=== PATIENT | female | born 1935 | race Caucasian/White ===

== ENCOUNTER 2022-10-25 15:57 | Inpatient (IN) | payer MEDICARE, OTHER ==
[~2022-10-25] VITALS: Ht 162.6 cm; Wt 106.6 kg
[2022-10-25] MEDS ORDERED: BUSPIRONE (16:15)
[2022-10-25] MEDS ORDERED: ESCITALOPRAM (16:15)
[2022-10-25] MEDS ORDERED: TRAZODONE (16:15)
[2022-10-25] MEDS ORDERED: AZIT250T PO (16:15)
[2022-10-25] MEDS ORDERED: SYNTHROID (16:15)
[2022-10-25] MEDS ORDERED: COZAAR (16:15)
[2022-10-25] MEDS ORDERED: ARICEPT (16:15)
[2022-10-25] MEDS ORDERED: PREDNISONE (16:15)
[2022-10-25] MEDS ORDERED: ASPI81TA31 PO (16:15)
--- NOTE | 2022-10-25 16:44 | NUR ---
PT IS IN ROOM #4A. DR DA SILVA EVALUATED THE PT.
[2022-10-25 16:50] LABS: HEMATOCRIT 39.8 % (31.2-41.9); MEAN CORPUSCULAR HEMOGLOBIN 30.5 uug (24.7-32.8); MEAN CORPUSCULAR VOLUME 94.1 fL (75.5-95.3); PLATELET COUNT (AUTO) 317 K/uL (179-408)
[2022-10-25 17:07] LABS: CARBON DIOXIDE 30 mmol/L (21-32); CHLORIDE 105 mmol/L (98-107); CREATININE 1.3 mg/dL (0.6-1.3); GLUCOSE 145 mg/dL (74-106); POTASSIUM 4.3 mmol/L (3.5-5.1); UREA NITROGEN, BLOOD 23 mg/dL (7-18)
[2022-10-25] MEDS ORDERED: ALBUTEROL SULFATE 2.5 MG/3 ML NEBU ONE ×2 (17:24→18:10)
[2022-10-25] MEDS ORDERED: IPRATROPIUM BROMIDE 0.5 MG/2.5 ML NEBU ONE ×2 (17:25→18:10)
[2022-10-25 17:30] LABS: ALANINE AMINOTRANSFERASE 15 U/L (14-59); ALKALINE PHOSPHATASE 101 U/L (50-136); ASPARTATE AMINOTRANSFERASE 13 U/L (15-37); BILIRUBIN,DIRECT 0.1 mg/dL (0.0-0.2); BILIRUBIN,TOTAL 0.2 mg/dL (0.2-1.0)
[2022-10-25] MEDS ORDERED: IPRATROPIUM BROMIDE 0.5 MG/2.5 ML NEBU NEB ONE ×2 (17:30→18:15)
[2022-10-25] MEDS ORDERED: ALBUTEROL SULFATE 2.5 MG/3 ML NEBU NEB ONE ×2 (17:30→18:15)
[2022-10-25] MEDS ORDERED: methylPREDNISolone SOD SUCC 40 MG/ML VIAL IV ONE (18:15)
--- NOTE | 2022-10-25 19:31 | NUR ---
Called [facility] for panel call. Dr. Jorge Mayo transition mgr.
[2022-10-25] MEDS ORDERED: methylPREDNISolone SOD SUCC 40 MG/ML VIAL ONE (19:39)
[2022-10-25 20:00] VITALS: BP 134/76
--- NOTE | 2022-10-25 20:00 | NUR ---
Called thrid floor and recieved room #[id number] from Edgar GARAY.
--- NOTE | 2022-10-25 21:28 | NUR ---
Called third floor and gave report ot Eddie GARAY.
[2022-10-25] MEDS ORDERED: TRAZODONE 50 MG TABLET PO PRN (21:30)
[2022-10-25] MEDS ORDERED: IV LACTATED RINGERS SOLUTION 1,000 ML IV PRN (21:45)
[2022-10-25] MEDS: ALBUTEROL SULFATE 1.25 MG/3 ML NEBU NEB SCH (21:45)
[2022-10-25] MEDS ORDERED: REMEDY ESSENTIAL ZINC PASTE 113 GM TP PRN (21:45)
[2022-10-25] MEDS: IPRATROPIUM BROMIDE 0.5 MG/2.5 ML NEBU NEB SCH (21:45)
[2022-10-25] MEDS ORDERED: MAGNESIUM HYDROXIDE 30 ML LIQUID UDC PO PRN (21:45)
[2022-10-25] MEDS ORDERED: CEFTRIAXONE 1 G in IV DEXTROSE 5% 50 ML IV SCH (21:45)
[2022-10-25] MEDS ORDERED: ONDANSETRON 4 MG/2 ML VIAL IV PRN (21:45)
[2022-10-25] MEDS ORDERED: DEXTROSE 50% 50 ML DISP.SYRIN IV PRN (21:45)
[2022-10-25] MEDS ORDERED: ACETAMINOPHEN 325 MG TABLET PO PRN (21:45)
--- NOTE | 2022-10-25 21:48 | NUR ---
Patient was transferred up to 3rd floor via gurney. TANISHA Morgan made aware of patient's arrival.
[2022-10-25] MEDS ORDERED: DEXAMETHASONE SOD PHOSPHATE 4 MG INJ IV ONE (22:15)
[2022-10-25] MEDS: ENOXAPARIN SODIUM 30 MG/0.3 ML DISP.SYRIN SUBCUT SCH (22:55)
[2022-10-26 04:00] VITALS: BP 126/50
[2022-10-26] MEDS ORDERED: CEFTRIAXONE 1 G VIAL ONE (05:19)
[2022-10-26] MEDS: BLOOD SUGAR DIAGNOSTIC 1 EACH STRIP VI SCH ×4 (05:52→20:31)
[2022-10-26] MEDS ORDERED: DEXAMETHASONE SOD PHOSPHATE 4 MG INJ IV ONE (06:15)
[2022-10-26] MEDS ORDERED: LEVOTHYROXINE SODIUM 25 MCG TABLET PO SCH (07:00)
[2022-10-26] MEDS ORDERED: LEVOTHYROXINE SODIUM 50 MCG TABLET PO SCH ×2 (07:00)
[2022-10-26] MEDS: ALBUTEROL SULFATE 1.25 MG/3 ML NEBU NEB SCH ×4 (07:17→19:26)
[2022-10-26] MEDS: IPRATROPIUM BROMIDE 0.5 MG/2.5 ML NEBU NEB SCH ×4 (07:17→19:26)
[2022-10-26 07:23] LABS: HEMATOCRIT 37.7 % (31.2-41.9); MEAN CORPUSCULAR HEMOGLOBIN 30.7 uug (24.7-32.8); MEAN CORPUSCULAR VOLUME 93.7 fL (75.5-95.3); PLATELET COUNT (AUTO) 283 K/uL (179-408)
[2022-10-26 07:39] LABS: BILIRUBIN,TOTAL 0.1 mg/dL (0.2-1.0); CREATININE 1.3 mg/dL (0.6-1.3); MAGNESIUM 1.9 mg/dL (1.8-2.4); PHOSPHOROUS 3.3 mg/dL (2.5-4.9); POTASSIUM 5.3 mmol/L (3.5-5.1); TOTAL PROTEIN, SERUM 6.6 g/dL (6.4-8.2)
[2022-10-26 08:00] VITALS: BP 118/47
--- NOTE | 2022-10-26 08:06 | NUR ---
Received pt. Camille from [facility] ([facility]) at about 21:45 PM. Per report and pt assessment, pt is being admitted after c/o S.O.B and Bronchitis. Pt is oriented to unit and is not c/o of pain. Pt. states that she is sleepy and was not able to complete assessment at the time. Skin is intact. Pt is AOX3. Endorsed care to AM nurse Max at 7:30 AM
[2022-10-26] MEDS: LOSARTAN POTASSIUM 50 MG TABLET PO SCH (08:18)
[2022-10-26] MEDS: INSULIN REGULAR, HUMAN 300 UNIT/3 ML VIAL SQ PRN ×4 (08:20→20:37)
[2022-10-26] MEDS: DOXYCYCLINE HYCLATE IV 100 MG in IV DEXTROSE 5% 100 ML IV SCH ×2 (08:22→20:24)
[2022-10-26] MEDS ORDERED: DONEPEZIL 10 MG TABLET PO SCH ×2 (09:00→17:00)
[2022-10-26] MEDS ORDERED: ASPIRIN 81 MG TAB.CHEW PO SCH (09:00)
[2022-10-26] MEDS ORDERED: ESCITALOPRAM OXALATE 10 MG TABLET PO SCH ×2 (09:00)
[2022-10-26] MEDS ORDERED: busPIRone 5 MG TABLET PO SCH ×2 (09:00)
--- NOTE | 2022-10-26 09:43 | NUR ---
0730-Rec'd patient in bed, awake. HOB elevated. Patient is alert and able to verbalize her needs, denies pain. Oxygen in prog via NC 2LPM, no respiratory distress/SOB noted. CG at bedside; encouraged patient to use call light for help every time needed. All safety measures in place. 0900-Scheduled medications administered, oral fluids taken well. Patient denies GI discomfort, continues eating her breakfast. Supervision and assist provided as needed. Will monitor closely.
--- NOTE | 2022-10-26 11:23 | NUR ---
CBC, CHEM DONE TODAY LAB VALUES REC'D AND RELAYED PATEL Venegas WITH ORDERS FOR KAYAXALATE ORALLY 15G X1 DOSE ONLY. NOTED AND CARRIED OUT.
[2022-10-26] MEDS ORDERED: SODIUM POLYSTYRENE SULFONATE 15 G/60 ML LIQUID UDC PO ONE (11:30)
[2022-10-26 11:42] VITALS: BP 121/56
[2022-10-26] MEDS ORDERED: ESCITALOPRAM OXALATE 10 MG TABLET PO ONE (14:00)
[2022-10-26] MEDS ORDERED: DONEPEZIL 10 MG TABLET PO ONE (14:00)
[2022-10-26] MEDS ORDERED: LEVO25TA2 PO (14:26)
[2022-10-26] MEDS ORDERED: LEVA0.635 IH (14:26)
[2022-10-26] MEDS ORDERED: LOSA50TA39 PO (14:26)
[2022-10-26] MEDS ORDERED: TRAZ-182 PO (14:28)
[2022-10-26] MEDS ORDERED: POLY17PO4 PO (14:28)
[2022-10-26] MEDS ORDERED: ROSU5TAB PO (14:28)
[2022-10-26] MEDS ORDERED: MEMA10TA PO (14:28)
[2022-10-26] MEDS ORDERED: TROL35.4 TP (14:37)
[2022-10-26] MEDS ORDERED: BUDE0.5A4 IH (14:37)
[2022-10-26] MEDS ORDERED: DICL100G31 TP (14:37)
[2022-10-26] MEDS ORDERED: HYDR453. TP (14:39)
[2022-10-26] MEDS ORDERED: ASPI-1101 PO (15:19)
[2022-10-26] MEDS ORDERED: BUSP15TA3 PO ×2 (15:20→15:22)
[2022-10-26] MEDS ORDERED: ESCI20TA PO (15:22)
[2022-10-26] MEDS ORDERED: IPRA0.2S48 NEB (15:22)
[2022-10-26] MEDS ORDERED: DONE10TA11 PO (15:22)
[2022-10-26] MEDS ORDERED: LORA10TA64 PO (15:32)
[2022-10-26] MEDS: methylPREDNISolone SOD SUCC 40 MG/ML VIAL IV SCH (15:57)
[2022-10-26 16:00] VITALS: BP 137/54
[2022-10-26] MEDS: MEMANTINE HCL 10 MG TABLET PO SCH (17:13)
[2022-10-26] MEDS: busPIRone 5 MG TABLET PO SCH (17:13)
--- NOTE | 2022-10-26 19:46 | NUR ---
IV INSERTED TO RT HAND DUE TO PREVIOUS ONE PULLED OUT. PROCEDURE EXPLAINED PRIOR TO INSERTION. PATIENT TOLERATED WELL, DENIED ANY PAIN. ASSISTED WITH HER ADLS AND NEEDED THROUGH OUT THE SHIFT. CG AT BEDSIDE DURING THE SHIFT. PATIENT WITHIN USUAL BASELINE, NO CHANGES IN CONDITION NOTED. KEPT COMFORTABLE AND CLEAN. PATIENT COOPERATIVE WITH HER CARE AND COMPLIANT WITH TREATMENT. MEDICATION ADMINISTERED SCHEDULED DURING SHIFT. NO ASE NOTED, PATIENT EATING AND DRINKING WELL, DENIES GI DISCOMFORT. ENDORSED TO RELIEVING RN FOR PROPER FOLLOW UP.
[2022-10-26 20:20] VITALS: BP 125/63
[2022-10-26] MEDS: TRAZODONE 50 MG TABLET PO SCH (20:24)
[2022-10-26] MEDS: ENOXAPARIN SODIUM 30 MG/0.3 ML DISP.SYRIN SUBCUT SCH (20:25)
[2022-10-27 00:20] VITALS: BP 95/49
[2022-10-27] MEDS: CEFTRIAXONE 2 G in IV DEXTROSE 5% 100 ML IV SCH (04:19)
[2022-10-27 04:20] VITALS: BP 130/61
[2022-10-27] MEDS ORDERED: CEFTRIAXONE 1 G in IV DEXTROSE 5% 50 ML IV SCH (05:00)
[2022-10-27] MEDS: LEVOTHYROXINE SODIUM 25 MCG TABLET PO SCH (06:07)
[2022-10-27] MEDS: BLOOD SUGAR DIAGNOSTIC 1 EACH STRIP VI SCH ×4 (06:07→20:52)
[2022-10-27] MEDS: ALBUTEROL SULFATE 1.25 MG/3 ML NEBU NEB SCH ×4 (07:35→21:14)
[2022-10-27] MEDS: IPRATROPIUM BROMIDE 0.5 MG/2.5 ML NEBU NEB SCH ×4 (07:35→21:14)
[2022-10-27 07:47] LABS: MEAN CORPUSCULAR HEMOGLOBIN 30.7 uug (24.7-32.8); MEAN CORPUSCULAR VOLUME 93.1 fL (75.5-95.3); PLATELET COUNT (AUTO) 289 K/uL (179-408)
[2022-10-27 08:11] LABS: CARBON DIOXIDE 31 mmol/L (21-32); CHLORIDE 105 mmol/L (98-107); CREATININE 1.2 mg/dL (0.6-1.3); GLUCOSE 111 mg/dL (74-106); POTASSIUM 4.9 mmol/L (3.5-5.1); UREA NITROGEN, BLOOD 30 mg/dL (7-18)
[2022-10-27] MEDS ORDERED: ESCITALOPRAM OXALATE 10 MG TABLET PO SCH (09:00)
--- NOTE | 2022-10-27 09:09 | NUR ---
PATIENT SEEN BY PHYSICAL THERAPY FOR THERAPEUTIC EXERCISES WITH FRONT WHEEL WALKER GAITED ABOUT 40 FEET ENDURANCE IS FAIT O2 AT THIS TIME IS 2L/M WITH SAT AT 95 PERCENT WILL CONTINUE TO OBSERVE.
[2022-10-27] MEDS: ASPIRIN EC 81 MG TABLET.DR PO SCH (09:19)
[2022-10-27] MEDS: MEMANTINE HCL 10 MG TABLET PO SCH ×2 (09:19→16:20)
[2022-10-27] MEDS: methylPREDNISolone SOD SUCC 40 MG/ML VIAL IV SCH ×3 (09:19→21:17)
[2022-10-27] MEDS: DOXYCYCLINE HYCLATE 100 MG TABLET PO SCH ×2 (09:19→20:43)
[2022-10-27] MEDS: LOSARTAN POTASSIUM 50 MG TABLET PO SCH (09:20)
[2022-10-27] MEDS: ESCITALOPRAM OXALATE 10 MG TABLET PO SCH (09:20)
[2022-10-27] MEDS: busPIRone 10 MG TABLET PO SCH (09:24)
--- NOTE | 2022-10-27 10:42 | NUR ---
PATIENT SEEN AND EXAMINED BY DR JEAN-BAPTISTE WITH NEW ORDERS AND NOTED
[2022-10-27] MEDS: BUDESONIDE 0.5 MG/2 ML NEBU NEB SCH ×2 (10:58→21:14)
[2022-10-27 11:35] VITALS: BP 137/53
[2022-10-27 16:00] VITALS: BP 124/52
[2022-10-27] MEDS: busPIRone 5 MG TABLET PO SCH (16:20)
[2022-10-27] MEDS: PROTEIN SUPPLEMENT (PROSTAT) 30 ML LIQUID PO SCH (16:28)
--- NOTE | 2022-10-27 18:00 | NUR ---
RESTING WITH O2 AT 2L/M BY NASAL CANULA STILL WITH SOBE NO S/S OF HYPO/HYPERGLYCEMIC REACTIONS AT THIS TIME MADE COMFORTABLE WILL CONTINUE TO OBSERVE.
[2022-10-27] MEDS: TRAZODONE 50 MG TABLET PO SCH (20:43)
[2022-10-27] MEDS: DONEPEZIL 10 MG TABLET PO SCH (20:43)
[2022-10-27] MEDS: ENOXAPARIN SODIUM 30 MG/0.3 ML DISP.SYRIN SUBCUT SCH (20:44)
[2022-10-27 20:55] VITALS: BP 138/60
[2022-10-27] MEDS: INSULIN REGULAR, HUMAN 300 UNIT/3 ML VIAL SQ PRN (20:55)
[2022-10-28 00:48] VITALS: BP 127/58
[2022-10-28 04:32] VITALS: BP 154/70
[2022-10-28] MEDS: CEFTRIAXONE 2 G in IV DEXTROSE 5% 100 ML IV SCH (05:03)
[2022-10-28] MEDS: methylPREDNISolone SOD SUCC 40 MG/ML VIAL IV SCH ×2 (05:03→20:44)
[2022-10-28] MEDS: LEVOTHYROXINE SODIUM 25 MCG TABLET PO SCH (06:05)
[2022-10-28 06:40] LABS: ABG BASE EXCESS 1.5 mmol/L; ABG HCO3 27.5 mmol/L; ABG PCO2 49.3 mmHg (35.0-45.0); ABG PH 7.365 (7.350-7.450); ABG PO2 75.3 mmHg (75.0-100.0); ABG SITE LEFT RADIAL; ABG TOTAL HEMOGLOBIN 12.9 G/dL (12.0-16.0); COHb 0.7 % (0.5-1.5); O2Hb 94.7 % (94.0-97.0); VENT MODE Nasal Cannula
[2022-10-28 06:40] LABS: HEMATOCRIT 36.6 % (31.2-41.9); MEAN CORPUSCULAR VOLUME 92.8 fL (75.5-95.3); PLATELET COUNT (AUTO) 283 K/uL (179-408)
[2022-10-28 06:49] LABS: CARBON DIOXIDE 30 mmol/L (21-32); CHLORIDE 105 mmol/L (98-107); CREATININE 1.2 mg/dL (0.6-1.3); GLUCOSE 151 mg/dL (74-106); MAGNESIUM 2.2 mg/dL (1.8-2.4); PHOSPHOROUS 4.7 mg/dL (2.5-4.9); POTASSIUM 5.1 mmol/L (3.5-5.1); UREA NITROGEN, BLOOD 34 mg/dL (7-18)
[2022-10-28] MEDS: BLOOD SUGAR DIAGNOSTIC 1 EACH STRIP VI SCH ×4 (06:57→20:46)
[2022-10-28] MEDS: BUDESONIDE 0.5 MG/2 ML NEBU NEB SCH ×2 (07:40→20:57)
[2022-10-28] MEDS: ALBUTEROL SULFATE 1.25 MG/3 ML NEBU NEB SCH ×4 (07:40→20:58)
[2022-10-28] MEDS: IPRATROPIUM BROMIDE 0.5 MG/2.5 ML NEBU NEB SCH ×4 (07:40→20:57)
--- NOTE | 2022-10-28 08:00 | NUR ---
AWAKE ALERT AND ORIENTED X3 NO SS OF PAIN OR DISTRESS. ON 3L NC SATURATING 96%. SR ON MONITOR
[2022-10-28] MEDS: ASPIRIN EC 81 MG TABLET.DR PO SCH (08:10)
[2022-10-28] MEDS: INSULIN REGULAR, HUMAN 300 UNIT/3 ML VIAL SQ PRN ×2 (08:10→11:39)
[2022-10-28] MEDS: MEMANTINE HCL 10 MG TABLET PO SCH ×2 (08:10→16:44)
[2022-10-28] MEDS: DOXYCYCLINE HYCLATE 100 MG TABLET PO SCH (08:11)
[2022-10-28] MEDS: busPIRone 10 MG TABLET PO SCH (08:11)
[2022-10-28] MEDS: ESCITALOPRAM OXALATE 10 MG TABLET PO SCH (08:11)
[2022-10-28] MEDS: PROTEIN SUPPLEMENT (PROSTAT) 30 ML LIQUID PO SCH ×2 (08:12→16:45)
[2022-10-28] MEDS: LOSARTAN POTASSIUM 50 MG TABLET PO SCH (08:14)
--- NOTE | 2022-10-28 10:00 | NUR ---
SEEN BY PHYSICAL THERAPIST FOR PT EVAL AND EXERCISES TOLERATED FAIRLY. NO UNUSUAL MANIFESTATION AFTER. SR ON MONITOR.
[2022-10-28 11:09] VITALS: BP 129/53
--- NOTE | 2022-10-28 12:38 | NUR ---
PATIENT TOLERATING RA NO SS OF DISTRESS SATURATING 97%. CONTINUE HHN TX. BY RT SR ON MONITOR
[2022-10-28 12:45] VITALS: BP 122/56
[2022-10-28] MEDS ORDERED: METH4TAB3 PO (13:34)
--- NOTE | 2022-10-28 14:00 | NUR ---
PATIENT PUT BACK ON 2L O2 DUE TO OW SAT 86-87% ON RA
--- NOTE | 2022-10-28 15:25 | NUR ---
PLAN DISCHARGE TO [facility] WITH O2
[2022-10-28 15:26] VITALS: BP 114/43
[2022-10-28] MEDS: busPIRone 5 MG TABLET PO SCH (16:44)
--- NOTE | 2022-10-28 17:33 | NUR ---
CONTINUE WITH TELE MONITORING PLACED BACK ON 2L O2 VIA NC DUE TO LOW SATS 87-88% CLOSELY MONITORED. PATIENT TOLERATES DINNER WELL REQUIRES MINIMAL HELP/SET-UP
[2022-10-28 20:00] VITALS: BP 118/90
[2022-10-28] MEDS: TRAZODONE 50 MG TABLET PO SCH (20:44)
[2022-10-28] MEDS: DONEPEZIL 10 MG TABLET PO SCH (20:44)
[2022-10-28] MEDS ORDERED: ENOXAPARIN SODIUM 40 MG/0.4 ML DISP.SYRIN SQ SCH (21:00)
[2022-10-29 04:00] VITALS: BP 111/68
[2022-10-29] MEDS: ALBUTEROL SULFATE 1.25 MG/3 ML NEBU NEB SCH ×2 (04:00→11:30)
[2022-10-29] MEDS: IPRATROPIUM BROMIDE 0.5 MG/2.5 ML NEBU NEB SCH ×2 (04:00→11:31)
[2022-10-29] MEDS: BUDESONIDE 0.5 MG/2 ML NEBU NEB SCH (04:00)
[2022-10-29] MEDS: LEVOTHYROXINE SODIUM 25 MCG TABLET PO SCH (06:13)
[2022-10-29] MEDS: BLOOD SUGAR DIAGNOSTIC 1 EACH STRIP VI SCH ×2 (06:35→11:39)
--- NOTE | 2022-10-29 08:00 | NUR ---
AWAKE ALERT AND ORIENTED X3 ON O2 AT 2L NC SATURATING 94%. SLIGHT SOB ON EXERTION. OCCASIONAL WHEEZING OBSERVE ON EXERTION. HHN BY RT GIVEN ORDERED. SR ON MONITOR
[2022-10-29] MEDS: ASPIRIN EC 81 MG TABLET.DR PO SCH (08:48)
[2022-10-29] MEDS: MEMANTINE HCL 10 MG TABLET PO SCH (08:48)
[2022-10-29] MEDS: ESCITALOPRAM OXALATE 10 MG TABLET PO SCH (08:49)
[2022-10-29] MEDS: busPIRone 10 MG TABLET PO SCH (08:49)
[2022-10-29] MEDS: LOSARTAN POTASSIUM 50 MG TABLET PO SCH (08:49)
[2022-10-29] MEDS: methylPREDNISolone SOD SUCC 40 MG/ML VIAL IV SCH (08:50)
[2022-10-29] MEDS: PROTEIN SUPPLEMENT (PROSTAT) 30 ML LIQUID PO SCH (08:50)
--- NOTE | 2022-10-29 10:00 | NUR ---
SEEN BY DR JEAN-BAPTISTE FOR PULMONARY FOLLOW-UP NO NEW ORDERS. MADE AWARE OF PATIENT DISCHARGE TO [facility]
[2022-10-29 11:41] VITALS: BP 154/67
--- NOTE | 2022-10-29 12:30 | NUR ---
DISCHARGED SUMMARY PER HOSPITALIST GIVEN TO PATIENT
--- NOTE | 2022-10-29 13:35 | NUR ---
DISCHARGED TO [facility] VIA AMBULANCE. MEDICATION AND FOLLOW-UP INSTRUCTION GIVEN TO [employer] SPECIALIST. AMBULANCE MADE AWARE THE NEED OF O2
[2022-10-29] MEDS ORDERED: predniSONE 20 MG TABLET PO SCH (18:00)
== END 2022-10-29 13:35 | disposition home health service (06) | DRG 202 ==
LOC: ER 15:57 → TELE3 20:14
PROVIDERS: ADMIT Nurse Practitioner Acute Care; ATTEND Nurse Practitioner Acute Care
DX: J20.9 Acute bronchitis, unspecified (principal); F03.93 Unspecified dementia, unspecified severity, with mood disturbance; F03.94 Unspecified dementia, unspecified severity, with anxiety; Z68.41 Body mass index [BMI] 40.0-44.9, adult; J98.11 Atelectasis; J45.909 Unspecified asthma, uncomplicated; G47.00 Insomnia, unspecified; I10 Essential (primary) hypertension; E11.9 Type 2 diabetes mellitus without complications; E03.9 Hypothyroidism, unspecified; Z79.899 Other long term (current) drug therapy; I25.10 Atherosclerotic heart disease of native coronary artery without angina pectoris; E66.9 Obesity, unspecified; Z79.82 Long term (current) use of aspirin; Z87.01 Personal history of pneumonia (recurrent); R53.81 Other malaise; Z20.822 Contact with and (suspected) exposure to COVID-19
CPT/HCPCS: 36415; 36600; 71045; 83735; 84100; 84484; 85025; 87040; 93005; 94640; A4663; G0378; J0696; J1100; J1650; J1815; J2920; J3490; J3590; J7120